=== PATIENT | male | born 1990 | race Caucasian/White ===

== ENCOUNTER 2020-07-02 06:25 | Day surgery (SDC) | payer OTHER ==
[~2020-07-02] VITALS: Ht 172.7 cm; Wt 100.0 kg
--- NOTE | ~2020-07-02 | OR ---
[facility] [address], [place] [address] Draft DATE OF OPERATION: 07/02/2020 SURGEON: Simba Mast MD PREOPERATIVE DIAGNOSES: Chronic frontal sinusitis, chronic ethmoiditis, chronic sphenoiditis, chronic maxillary sinusitis, recurring acute sinusitis, deviated nasal septum, chronic sinus headaches, nasal obstruction. POSTOPERATIVE DIAGNOSES: Chronic frontal sinusitis, chronic ethmoiditis, chronic sphenoiditis, chronic maxillary sinusitis, recurring acute sinusitis, deviated nasal septum, chronic sinus headaches, nasal obstruction. PROCEDURES: 1. Bilateral frontal ethmoidectomies, 76043-25. 2. Nasal septoplasty, 70581. 3. Bilateral endoscopic sphenoidotomies, 23876-82. 4. Bilateral endoscopic maxillary antrostomies, 95167-22. INDICATIONS: This 30-year-old gentleman has had nasal obstruction and sinus problems for years. It seemed to happen after he had trauma to the nose, not had a good nasal airway on the left side. The patient then has had subsequent pressure headaches in all of the areas, usually presenting with plugged sinuses, i.e., frontal pain, periorbital pain, maxillary pain, and occipital pain with congestion and exacerbation of symptoms, and acute infections, which would respond to antibiotics temporarily. Progressively, it has gotten worse each year. Therefore, the patient has sought out a definitive evaluation, was found to have chronic rhinitis with some thickening of tissue up inside the nose, some thickening of the ethmoid mucosa, chronic disease is noted in those areas. This would block the nasofrontal duct and also the posterior ethmoids and sphenoethmoidal recess with interruption of the air column, creation of a pressure differential, which gave the patient's pain more often day-to-day basis. Also, noted on the CT scan was very angulated septum, essentially no airway on the left side anteriorly, crowding the ostiomeatal unit, also especially noted on the right side. Medialization of the maxillary wall at the expense of the nasal airway and very overly pneumatized maxillary sinus. Because of medical failure to improve his symptoms, the above procedures were felt to be almost curative. Certainly, we would give him a better daily existence. PATIENT NAME: AAKASH DELGADILLO OPERATIVE REPORT DATE OF : 86 REPORT #: [id number] PHYSICIAN: SIMBA MAST MD PCP: JEANETH CHRIS [facility] REPORT IS CONFIDENTIAL AND NOT TO BE RELEASED WITHOUT AUTHORIZATION [facility] [address] [place] [id number] Draft DESCRIPTION OF PROCEDURE: The patient was placed in the supine position, had an orotracheal intubation, was placed under general anesthesia. Right side was done first as the septum allowed it. A 1.5 mL of 1% lidocaine with 1:200,000 epinephrine were injected into the middle turbinate and the uncinate process of the lateral wall. The anterior-inferior portion middle turbinate was trimmed away using the Thru-Cut ethmoid punch, Kerrison forceps, microdebrider, and a sickle knife was used to incise the uncinate process insinuating than the Thru-Cut ethmoid punch cutting that uncinate process also using the backbiter to completely remove it and widen the maxillary ostium. A curette was then used to puncture and the ethmoid bulla and going from ethmoid air cell to air cell. The intersinus septations were sharply removed as much as possible without stripping mucosa. Diseased mucosa was noted as also stripped off the bone very easily consistent with chronic inflammation. A trans-ethmoid sphenoidotomy was made on the right side staying low and medial until the ceiling to the sphenoid sinus could be visualized, then the Kerrison forceps was used to remove the rostrum of the sphenoid going up to the top and then coming forward with a 70-degree scope, again dissecting out the base of skull going up the frontal recess. The beak of the frontal sinus was removed as much as possible with Kerrison frontal sinus punch and a very wide frontal sinusotomy was possible. Removing all the shards and slivers of bone and cutting the mucosa as closely as possible, a well marsupialized sinus labyrinth was achieved. The septum was then repaired. Injecting a few mL of lidocaine also, a total of 3 mL of 0.5% Marcaine with 1:200,000 epinephrine into the septum along the floor. The incision was made at the junction of the floor on the left side with a 15 blade. Starting the dissection with a scalpel, then lifting it up in a submucoperichondrial plane with the Delta dissection tool. bone from cartilage with the Delta D-knife and the septal button knife and then the blunt end of the caudal dissection tool, bilateral elevation of the mucoperiosteum was accomplished. The Trimble scissors were then used to cut the deviated piece of bone inferiorly. The maxillary crest was cut with chisel with an angle in it and mallet. Removing all of the deviation of the pieces of bone and sparing, the nasal septum, and an L-shaped strut, the flaps were then returned to the original position with the basing stitch the anterior incision was closed with same. The sinus dissection then was performed in the same order, same sequence, and technique of the right side. The uncinate process was removed and the maxillary ostium widened. The anteroinferior portion of middle turbinate was trimmed away as it had some lateralization to it. A complete ethmoidectomy was then done going transethmoidal sphenoidotomy into the sphenoid sinus, removing enough bone of the rostrum to make sure that it stayed widely patent. Then, the dissection was carried along the base of skull up to the frontal recess. Diseased mucosa was noted in those anterosuperior ethmoid air cells and a wide frontal sinusotomy was possible just like the right side. Estimated blood loss was only about 50 mL. The patient tolerated the procedure well. No packing was required, just some nasal pore to help prevent lateralization of the remnant of the middle turbinates. The patient went to the recovery room in good condition. PATIENT NAME: AAKASH DELGADILLO OPERATIVE REPORT DATE OF : [birth year] REPORT #: [id number] PHYSICIAN: SIMBA MAST MD PCP: JEANETH CHRIS PAC REPORT IS CONFIDENTIAL AND NOT TO BE RELEASED WITHOUT AUTHORIZATION [address] [address] Draft Simba Mast MD [facility]/MODL /[id number] Copies: ~ PATIENT NAME: AAKASH DELGADILLO OPERATIVE REPORT DATE OF : [birth year] REPORT #: [id number] PHYSICIAN: SIMBA MAST MD PCP: JEANETH CHRIS PAC REPORT IS CONFIDENTIAL AND NOT TO BE RELEASED WITHOUT AUTHORIZATION
[~2020-07-02 06:25] MED LIST: IRBESARTAN-HCT1 EACH PO; PROZAC40 MG PO
--- NOTE | 2020-07-02 10:04 | NUR ---
07/02/20 1004 Daljit Whipple OPA REMOVED AT 0959 PT EMERGES FROM ANESTHESIA.
--- NOTE | 2020-07-02 11:24 | NUR ---
PATIENT UP TO BATHROOM AFTER ARRIVING TO DAYSURGERY FROM PACU. STBY WITH PATIENT TO BATHROOM. REPORT FROM NII KRAFT. GAUZE TO NOSE C/D/I BEFORE AMBULATING, BUT AFTER AMBULATION NEEDED CHANGED WITH SMALL AMOUNT OF RED SHADOWING. PATIENT STATES " FEELS LIKE THERE IS A CONSTANT DRIP INTO THE BACK OF MY THROAT". NOTED PATIENT TACHY P120, PATIENT REPORTS NOT FEELING SYMPTOMATIC. PROVIDED MADAI CRACKERS AND WATER. MEDICATED PER AUG.
--- NOTE | 2020-07-02 11:54 | NUR ---
TYLENOL NOT EFFECTIVE WITH PAIN CONTROL. ADMINISTERED TRAMADOL PER MAR AND DIRECTION OF ORDERS. CALL TO DR. FAUSTIN TO REPORT PATIENT REQUEST TO HAVE TRAMADOL AVAILABLE AT HOME INSTEAD OF TYLENOL 3, SECONDARY TO PATIENT DRUG REHAB HISTORY. CALLED IN SCRIPT TO [facility] IN [place].
--- NOTE | 2020-07-02 12:45 | NUR ---
PROVIDED PATIENT WITH DISCHARGE INSTRUCTION. PROVIDED WHEELCHAIR RIDE OUT TO FRONT. PATIENT TRANSFERED INTO CAR, TOLERATED ACTIVITY WELL. PROVIDED PATIENT WITH GAUZE AND PAPER TAPE TO CHANGE OUT DRIP PAD AT HOME. PATIENT AND VERBALIZED UNDERSTANDING TO FOLLOW DIRECTIONS THAT PROVIDED FROM DR. FAUSTIN.
--- NOTE | 2020-07-02 12:46 | NUR ---
PT ALERT, ORIENTED AND SUPPORTED BY HIS SIG. OTHER. PT SEEMS INFORMED, SHARED HE IS READY FOR SOME RELIEF. ALL QUESTIONS ASKED ANSWERED.PT REQUESTED PRAYER WILL FOLLOW NEEDED
== END 2020-07-02 12:45 | disposition home or self-care (01) ==
LOC: DS 06:25 → OPS 06:25 → DS 07:30 → OPS 12:45
PROVIDERS: ATTEND Otolaryngology
PROC: 09BM0ZZ Excision of Nasal Septum, Open Approach (ICD-10-PCS; 2020-07-02)
PROC: 09TV4ZZ Resection of Left Ethmoid Sinus, Percutaneous Endoscopic Approach (ICD-10-PCS; principal; 2020-07-02 06:45)
PROC: 09TU4ZZ Resection of Right Ethmoid Sinus, Percutaneous Endoscopic Approach (ICD-10-PCS; 2020-07-02 06:45)
DX: J01.91 Acute recurrent sinusitis, unspecified (principal); J32.1 Chronic frontal sinusitis; J32.2 Chronic ethmoidal sinusitis; J32.3 Chronic sphenoidal sinusitis; J32.0 Chronic maxillary sinusitis; J34.89 Other specified disorders of nose and nasal sinuses; J34.2 Deviated nasal septum; J31.0 Chronic rhinitis; E11.9 Type 2 diabetes mellitus without complications; I10 Essential (primary) hypertension; F41.9 Anxiety disorder, unspecified
CPT/HCPCS: 00160; J1100; J1170; J2001; J2405; J2704; J3010; J3490; J7121